=== PATIENT | male | born 1950 | race African-American/Black ===

== ENCOUNTER 2020-09-20 13:25 | Inpatient (IN) | payer OTHER, MEDICARE ==
[~2020-09-20] VITALS: Ht 180.3 cm; Wt 66.0 kg
[2020-09-20 13:54] VITALS: BP 84/45
[2020-09-20 14:55] LABS: ABSOLUTE NEUTROPHILS 7.6 thou/uL (1.4-8.2); BASOPHILS 0.3 % (0.0-2.0); LYMPHOCYTES 8.7 % (24.0-44.0); MCH 31.9 pg (26.0-34.0); MCV 96.7 fL (80.0-100.0); MONOCYTES 4.4 % (1.0-8.0); PLATELET COUNT 220 thou/uL (150-400); POLYS 86.6 % (36.0-66.0); RBC 1.95 mil/uL (4.50-6.00); RDW 14.1 % (10.5-14.5); WBC 8.7 thou/uL (4.0-11.0)
[2020-09-20 14:59] LABS: HEMATOCRIT 18.8 % (42.0-52.0); HEMOGLOBIN 6.2 gm/dL (14.0-18.0)
[2020-09-20 15:01] LABS: ANION GAP 9 mmol/L (7-16); BUN 47 mg/dL (7-18); CALCIUM 8.8 mg/dL (8.5-10.1); CHLORIDE 111 mmol/L (98-107); CO2 25 mmol/L (21-32); CREATININE 1.3 mg/dL (0.7-1.3); GLUCOSE 140 mg/dL (74-106); POTASSIUM 4.1 mmol/L (3.5-5.1); SODIUM 145 mmol/L (136-145)
[2020-09-20 15:11] LABS: ALBUMIN 3.1 g/dL (3.4-5.0); DIRECT BILIRUBIN < 0.1 mg/dL (<0.1-0.2); SGOT 17 U/L (15-37); SGPT 21 U/L (30-65); TOTAL BILIRUBIN 0.2 mg/dL (0.2-1.0); TROPONIN-I <0.06 ng/mL (<0.06)
[2020-09-20 16:26] LABS: APTT 24.5 Seconds (24.5-32.8); PROTIME 10.8 Seconds (9.3-11.4)
[2020-09-20 17:03] VITALS: BP 112/61; BP 112/65; BP 114/64; BP 122/65
[2020-09-20 18:59] VITALS: BP 131/70
--- NOTE | 2020-09-20 19:11 | NUR ---
ATTEMPTED TO CALL REPORT. WAS TOLD NURSE IS BUSY GEWTTING REPORT AND WILL CB. INFORMED CHARGE NURSE
[2020-09-20 19:13] VITALS: BP 122/65
[2020-09-20 20:19] VITALS: BP 129/62
[2020-09-20 23:38] VITALS: BP 133/75
[2020-09-21] VITALS (7 sets, daily range): BP systolic 123–129; BP diastolic 67–82
[2020-09-21] MEDS ORDERED: DOXAZOSIN MESYLA4 MG PO (00:50)
[2020-09-21] MEDS ORDERED: LISINOPRIL40 MG PO (00:51)
[2020-09-21] MEDS ORDERED: PHENYTOIN SODI100 M3 PO (00:52)
[2020-09-21] MEDS ORDERED: VITAMIN D21250 MC1 PO (00:55)
[2020-09-21 02:17] LABS: HEMOGLOBIN 6.5 gm/dL (14.0-18.0)
[2020-09-21 02:18] LABS: MCH 31.5 pg (26.0-34.0); MCHC 33.7 g/dL (28.0-37.0); MCV 93.7 fL (80.0-100.0); RBC 2.07 mil/uL (4.50-6.00); RDW 15.1 % (10.5-14.5); WBC 8.9 thou/uL (4.0-11.0)
[2020-09-21 02:24] LABS: HEMATOCRIT 19.4 % (42.0-52.0)
--- NOTE | 2020-09-21 07:06 | EKG ---
[place] [address] [facility] [place] [address] ELECTROCARDIOGRAM REPORT Name: JOYCE THAYER Room #: 219-P ADM IN M.R.#: [id number] Admission: 09/20/20 Attend Phys: Laurel Montana Discharge: Date of : 50 Report #: [id number] [facility] ED Test Date: 2020-09-20 Test Time: 15:29:07 Pat Name: JOYCE THAYER Department: Room: 219 Gender: M Fugitive Detective: DIO : 1950 Requested By: Dorinda Harrington Order Number: [id number] MD: Marcelino Holloway Measurements Intervals [place] Rate: 80 P: 40 RI: 140 QRS: 72 QRSD: 110 T: 56 QT: 381 QTc: 440 Interpretive Statements Sinus rhythm LVH with IVCD and secondary repol abnrm No previous ECG available for comparison Electronically Signed On 09-21-2020 7:06:14 SEAM CHECKER by Marcelino Holloway [email or web address] <ELECTRONICALLY SIGNED> By: Marcelino Holloway MD, [facility] 09/21/20 0706 [id number] 1529 Marcelino Holloway MD, FACC /EPI
--- NOTE | 2020-09-21 08:34 | NUR ---
ASSUME CARE 1900. PT/VITALS STABLE. DENIES ANY PAIN. GOOD ENDURANCE TO ACTIVITY. ASSESSMENT CHARTED. PROGRESSING WELL WITH POC. PLAN IS TO CONTINUE TO MONITOR H/H AND TRANSFUSE NEEDED. NO DISTRESS NOTED THROUGH THE NIGHT. PROGRESSING WELL WITH POC. WILL CONTINUE TO MONITOR AND FOLLOW WITH POC
--- NOTE | 2020-09-21 12:38 | NUR ---
PT OFF UNIT TO GI LAB FOR EGD.
--- NOTE | 2020-09-21 13:52 | NUR ---
3RD UNIT OF BLOOD VERIFIED WITH SHEBA HULL WHO WILL SIGN IN [employer].
--- NOTE | 2020-09-21 14:24 | NUR ---
PT RETURN FROM GI LAB.
[2020-09-21 14:50] LABS: % SATURATION 23 % (20-39); IRON 48 ug/dL (65-175); TIBC 212 ug/dL (250-450)
[2020-09-21 15:11] LABS: HEMATOCRIT 24.9 % (42.0-52.0); HEMOGLOBIN 8.3 gm/dL (14.0-18.0)
--- NOTE | 2020-09-21 16:24 | NUR ---
Chart reviewed and case discussed with the care team. No weekend dc anticipated. Pt being treated for acute GI bleed and had EGD with cautery today. Pt will have close montioring of his h/h, protonix gtt and adv diet as tolerated. He comes from home and is normally independent with gait and adl's. Has family support and niece noted as his emergency contact. His pcp is Dr. Gerber Moya. He has health ins in place for f/u care at dc. No cm interventions indicated at this time. Will reassess Thursday should dc planning needs be indicated.
[2020-09-22] VITALS (7 sets, daily range): BP systolic 110–145; BP diastolic 66–82
[2020-09-22 05:56] LABS: HEMATOCRIT 23.2 % (42.0-52.0); HEMOGLOBIN 7.8 gm/dL (14.0-18.0); MCH 31.3 pg (26.0-34.0); MCHC 33.7 g/dL (28.0-37.0); MCV 92.7 fL (80.0-100.0); RBC 2.51 mil/uL (4.50-6.00); RDW 15.5 % (10.5-14.5); WBC 6.8 thou/uL (4.0-11.0)
--- NOTE | 2020-09-22 06:50 | NUR ---
ASSUME CARE 1900. PT/VITALS STABLE. DEIES AY PAIN. TOLERATES ACTVITY WELL. UP AD MARCO. ADEQUATE REST NOTED THROUGH THE NIGHT. NO DISTRESS NOTED. PT DENIES LIGHT HEADEDNESS. HGB AT 7.8 THIS AM. ASSESSMENT CHARTED. PROGRESSINGWELL WITH POC. PLAN IS POSSIBLE DISCHARGE WITHIN 1-2 DAYS. WILL CONTIUE TO MONITOR AND FOLLOW WITH POC
--- NOTE | 2020-09-22 18:24 | NUR ---
ASSUMED CARE OF PT AT SHIFT CHANGE. ASSESSMENTS CHARTED. MEDS GIVEN PER OCT. PT A&OX4, NO C/O PAIN. PLAN TO ASSESS H&H IN AM AND DISCHARGE IF STABLE. WILL CONTINUE TO MONITOR FOR CHANGE AND FOLLOW POC.
[2020-09-23 04:53] VITALS: BP 153/98
[2020-09-23 04:53] LABS: HEMATOCRIT 25.1 % (42.0-52.0); HEMOGLOBIN 8.4 gm/dL (14.0-18.0); MCHC 33.5 g/dL (28.0-37.0); MCV 92.4 fL (80.0-100.0); RBC 2.72 mil/uL (4.50-6.00); RDW 15.3 % (10.5-14.5); WBC 6.6 thou/uL (4.0-11.0)
--- NOTE | 2020-09-23 07:28 | NUR ---
SLEPT PART OF SHIFT. DENIES COMPLAINTS OF PAIN. UP AD MARCO WITH STEADY GAIT. PROGRESSING TOWARDS DISCHARGE GOALS. CONTINUE TO ASSES.
[2020-09-23] MEDS ORDERED: PROTONIX40 M2 PO (08:08)
[2020-09-23 08:16] VITALS: BP 153/98
[2020-09-23 08:54] VITALS: BP 149/87
--- NOTE | 2020-09-23 10:43 | NUR ---
ASSUMED CARE OF PT AT SHIFT CHANGE. ASSESSMENT CHARTED. MEDS GIVEN PER OCT. PT A&OX4, NO C/O PAIN OR DISTRESS. HGB STABLE. DISCHARGE ORDERS AND INSTRUCTIONS COMPLETE. IV AND TELE DC'D. THIS NURSE TOOK PT TO ER ENTRANCE IN WHEELCHAIR TO [facility] WAITING.
--- NOTE | 2020-09-24 15:07 | PATH ---
[facility] [address] [place] [address] PATHOLOGY RPT PROCEDURE Name: RONALD CASTILLO Room #: 219-P DIS IN M.R.#: [id number] Admission: 09/20/20 Date of : 50 Discharge: 09/23/20 Report #: [id number] Path Case #: [id number] [facility] Accession Number: [id number] . 01 Material submitted: . gastrointestinal site - ANTRUM BIOPSY R/O H.PYLORI . 02 Diagnosis: Stomach "antrum", endoscopic biopsy: - Chronic active gastritis, moderate to severe. - Negative for intestinal metaplasia, dysplasia, and malignancy. - POSITIVE for Helicobacter pylori. (MLK:sheila; 09/24/2020) S 09/24/2020 1244 Local . 02 Electronically signed: . Linwood Canales MD, Pathologist NPI- [id number] . 01 Gross description: . Received in formalin labeled "Ronald Castillo, BX antrum rule out H. pylori" is are 2 fragments of lainez-brown soft tissue measuring in aggregate 0.4 x 0.3 x 0.1 cm. The specimen is submitted entirely in A1. ([facility]; 09/23/2020) [facility] 09/23/2020 1137 Local . 02 Microscopic: . Immunohistochemical stain results (properly controlled) . Helicobacter pylori (A1) - Positive for organisms. . (MLK:sheila; 09/24/2020) . 02 Pathologist provided ICD-10: K29.50, B96.81 . 02 CPT . 208497, L71891 Specimen Comment: A courtesy copy of this report has been sent to [phone] Specimen Comment: Report sent to , / Performed at: [address] [id number] MD Norm Simpson MD Phone: [phone] Performed at: [address] [id number] [address] [address] PATHOLOGY RPT PROCEDURE Name: RONALD CASTILLO Room #: 219-P DIS IN M.R.#: [id number] Admission: 09/20/20 Date of : 50 Discharge: 09/23/20 Report #: [id number] Path Case #: [id number] MD Cherry Bowens MD Phone: [phone]
== END 2020-09-23 10:46 | disposition home or self-care (01) | DRG 378 ==
LOC: ER 13:25 → 2N 16:35 → EROBS 16:35 → 2N 19:14
PROVIDERS: Emergency Medicine; Internal Medicine Gastroenterology; Physician Assistant; ADMIT Hospitalist; ATTEND Hospitalist
PROC: 30233N1 Transfusion of Nonautologous Red Blood Cells into Peripheral Vein, Percutaneous Approach (ICD-10-PCS; principal; 2020-09-20)
PROC: 0DB68ZX Excision of Stomach, Via Natural or Artificial Opening Endoscopic, Diagnostic (ICD-10-PCS; 2020-09-21)
PROC: 0W3P8ZZ Control Bleeding in Gastrointestinal Tract, Via Natural or Artificial Opening Endoscopic (ICD-10-PCS; 2020-09-21)
DX: K26.4 Chronic or unspecified duodenal ulcer with hemorrhage (principal); D62 Acute posthemorrhagic anemia; I10 Essential (primary) hypertension; I95.9 Hypotension, unspecified; K44.9 Diaphragmatic hernia without obstruction or gangrene; Z20.822 Contact with and (suspected) exposure to COVID-19; F17.210 Nicotine dependence, cigarettes, uncomplicated
CPT/HCPCS: 10081; 62110; 62900; 70005